=== PATIENT | female | born 1965 | race Caucasian/White ===

== ENCOUNTER 2020-11-17 13:14 | Inpatient (IN) | payer MEDICARE, MEDICAID ==
[~2020-11-17] VITALS: Ht 175.3 cm; Wt 82.1 kg
[~2020-11-17 13:14] MED LIST: CALC-386 PO; CYCL1POW25 PO; DULO30CA PO; MIRT-66 PO; NARA2.5T2 PO; PANT40T PO; [UNRECOGNIZED DRUG - CODE] PO
[2020-11-17 13:48] LABS: Basophils # (auto) 0 10 ^3/uL (0-0.2); Basophils % (auto) 0.4 % (0.0-2.0); Eosinophils # (auto) 0.1 10 ^3/uL (0-0.8); Hematocrit 37.3 % (36.0-46.0); Hemoglobin 12.4 g/dL (12.2-16.2); Lymphocytes # (auto) 0.8 10 ^3/uL (0.4-5.4); Lymphocytes % (auto) 10.8 % (10.0-50.0); Mean Corpuscular Hemoglobin 29.7 pg (28.0-32.0); Mean Corpuscular Hgb Conc. 33.3 g/dL (32.0-36.0); Mean Corpuscular Volume 89.3 fL (80.0-100.0); Monocytes # (auto) 0.7 10 ^3/uL (0-1.3); Monocytes % (auto) 8.7 % (0.0-12.0); Neutrophils # (auto) 6.1 10 ^3/uL (1.6-8.6); Neutrophils % (auto) 79.1 % (37.0-80.0); Nucleated Red Blood Cells % 0.1 %; Platelet Count (auto) 258 10^3/uL (140-450); Red Blood Cells 4.18 10^6/uL (4.0-5.20); Red Cell Distribution Width 15.6 % (11.8-14.3); White Blood Cell 7.7 10^3/uL (4.4-10.8)
[2020-11-17] MEDS ORDERED: THROAT LOZENGES(CEPASTAT) MT ONE (15:15)
[2020-11-17 17:20] LABS: Urine Bacteria FEW /hpf (None Seen); Urine Blood Negative /uL (Negative); Urine Mucus FEW (None Seen); Urine Specific Gravity 1.032 (1.001-1.035); Urine WBC 5 /hpf (0 - 5)
[2020-11-17] MEDS ORDERED: MORPHINE SULF INJ 2 MG/ML SYRINGE 1ML IV PRN ×2 (17:30)
[2020-11-17] MEDS ORDERED: NITROGLYCERIN 0.4 MG SL TAB SL PRN (17:30)
[2020-11-17] MEDS ORDERED: ACETAMINOPHEN 500 MG TAB PO PRN (17:30)
[2020-11-17] MEDS ORDERED: SODIUM CHLORIDE 0.9% 1,000 ML IV ONE (17:30)
[2020-11-17] MEDS ORDERED: ONDANSETRON HCL 4 MG/2 ML VIAL IV PRN (17:30)
[2020-11-17] MEDS: HYDROcodone-ACET 5/325MG TAB PO PRN (18:02)
[2020-11-17 20:34] LABS: Albumin 2.8 g/dL (3.4-5.0); Calcium 8.2 mg/dL (8.5-10.1); Potassium 3.4 mmol/L (3.5-5.1)
[2020-11-17 20:36] LABS: BUN/Creatinine Ratio 20.3; Bilirubin, Total 0.3 mg/dL (0.2-1.0); Total Protein 6.8 g/dL (6.4-8.2)
[2020-11-17] MEDS ORDERED: LORazepam 2MG/ML-1ML VIAL IV PRN (20:45)
[2020-11-17 21:22] LABS: Amphetamine Screen, Urine NEGATIVE (NEGATIVE); Barbiturate Scree,Urine NEGATIVE (NEGATIVE); Benzodiazephine Screen, Urine NEGATIVE (NEGATIVE); Cannabinoid Screen, Urine NEGATIVE (NEGATIVE); Cocaine Screen, Urine NEGATIVE (NEGATIVE); Opiate Scree,Urine POSITIVE (NEGATIVE); Phencyclidine Screen, Urine NEGATIVE (NEGATIVE)
[2020-11-17 23:30] VITALS: BP 136/68
[2020-11-17] MEDS: DULoxetine HCL 30 MG CAP PO SCH (23:36)
[2020-11-17] MEDS: MIRTAZAPINE 30 MG TAB PO SCH (23:39)
[2020-11-18 01:16] VITALS: BP 186/68
[2020-11-18] MEDS: HYDROcodone-ACET 5/325MG TAB PO PRN ×3 (02:15→21:59)
[2020-11-18 05:03] VITALS: BP 101/49
[2020-11-18] MEDS: DULoxetine HCL 30 MG CAP PO SCH ×3 (06:00→21:59)
[2020-11-18] MEDS: THROAT LOZENGES(CEPASTAT) MT PRN ×3 (06:03→22:14)
[2020-11-18] MEDS: BACLOFEN 10 MG TAB PO SCH (06:05)
[2020-11-18 09:02] VITALS: BP 99/48
[2020-11-18] MEDS ORDERED: FAMOTIDINE 20 MG TAB PO SCH (10:00)
[2020-11-18] MEDS: TERIFLUNOMIDE 14 MG PO SCH (10:00)
[2020-11-18] MEDS: ENOXAPARIN SOD 40 MG/0.4 ML SYRINGE SC SCH (11:45)
[2020-11-18] MEDS: PANTOPRAZOLE 40 MG TAB PO SCH (11:45)
[2020-11-18 12:01] VITALS: BP 103/61
[2020-11-18] MEDS ORDERED: POTASSIUM CHL 20 Meq TABLET PO ONE (12:15)
[2020-11-18 16:09] VITALS: BP 100/54
[2020-11-18 21:47] VITALS: BP 128/66
[2020-11-18] MEDS: MIRTAZAPINE 30 MG TAB PO SCH (21:59)
[2020-11-18 23:49] LABS: Urine Bacteria FEW /hpf (None Seen); Urine Blood 1+ /uL (Negative); Urine Specific Gravity 1.013 (1.001-1.035); Urine WBC 3 /hpf (0 - 5)
[2020-11-19 05:05] VITALS: BP 117/64
[2020-11-19] MEDS: DULoxetine HCL 30 MG CAP PO SCH ×2 (06:00→12:55)
[2020-11-19] MEDS: BACLOFEN 10 MG TAB PO SCH (06:45)
[2020-11-19] MEDS: HYDROcodone-ACET 5/325MG TAB PO PRN ×2 (06:45→17:11)
[2020-11-19] MEDS: THROAT LOZENGES(CEPASTAT) MT PRN (07:00)
[2020-11-19 07:51] LABS: Basophils # (auto) 0 10 ^3/uL (0-0.2); Basophils % (auto) 0.3 % (0.0-2.0); Eosinophils # (auto) 0.1 10 ^3/uL (0-0.8); Eosinophils % (auto) 1.1 % (0.0-7.0); Hematocrit 31.2 % (36.0-46.0); Hemoglobin 10.6 g/dL (12.2-16.2); Lymphocytes # (auto) 0.9 10 ^3/uL (0.4-5.4); Lymphocytes % (auto) 12.8 % (10.0-50.0); Mean Corpuscular Hemoglobin 29.9 pg (28.0-32.0); Mean Corpuscular Hgb Conc. 33.9 g/dL (32.0-36.0); Mean Corpuscular Volume 88.1 fL (80.0-100.0); Monocytes # (auto) 0.6 10 ^3/uL (0-1.3); Monocytes % (auto) 8.4 % (0.0-12.0); Neutrophils # (auto) 5.3 10 ^3/uL (1.6-8.6); Neutrophils % (auto) 77.4 % (37.0-80.0); Nucleated Red Blood Cells % 0.1 %; Platelet Count (auto) 241 10^3/uL (140-450); Red Blood Cells 3.55 10^6/uL (4.0-5.20); Red Cell Distribution Width 15.4 % (11.8-14.3); White Blood Cell 6.9 10^3/uL (4.4-10.8)
[2020-11-19 07:59] LABS: Calcium 8.5 mg/dL (8.5-10.1); Magnesium 2.2 mg/dL (1.6-2.6); Potassium 3.5 mmol/L (3.5-5.1)
[2020-11-19 08:02] LABS: BUN/Creatinine Ratio 15.4
[2020-11-19] MEDS ORDERED: ADENOSINE 69 MG in GIVE UN-DILUTED 0 ML IV STA (08:52)
[2020-11-19 08:56] VITALS: BP 98/57
[2020-11-19 10:47] VITALS: BP 109/62
[2020-11-19] MEDS ORDERED: POTASSIUM CHL 20 Meq TABLET PO ONE (12:00)
[2020-11-19 12:30] VITALS: BP 115/67
[2020-11-19] MEDS: ENOXAPARIN SOD 40 MG/0.4 ML SYRINGE SC SCH (12:54)
[2020-11-19] MEDS: TERIFLUNOMIDE 14 MG PO SCH (12:54)
[2020-11-19] MEDS: PANTOPRAZOLE 40 MG TAB PO SCH (12:54)
[2020-11-19 16:56] VITALS: BP 115/71
== END 2020-11-19 18:48 | disposition home health service (06) | DRG 312 ==
LOC: EDBD 13:14 → ER 13:14 → TELE 13:15 → TELE-CENTR 22:59
PROVIDERS: ADMIT Nurse Practitioner Acute Care; ATTEND Internal Medicine
DX: R55 Syncope and collapse (principal); E87.6 Hypokalemia; G35 Multiple sclerosis; J44.9 Chronic obstructive pulmonary disease, unspecified; I10 Essential (primary) hypertension; G89.29 Other chronic pain; Z20.822 Contact with and (suspected) exposure to COVID-19; F17.200 Nicotine dependence, unspecified, uncomplicated; I65.29 Occlusion and stenosis of unspecified carotid artery; Z79.891 Long term (current) use of opiate analgesic; Z80.9 Family history of malignant neoplasm, unspecified; I25.10 Atherosclerotic heart disease of native coronary artery without angina pectoris; Z82.3 Family history of stroke; Z82.49 Family history of ischemic heart disease and other diseases of the circulatory system; Z99.3 Dependence on wheelchair
CPT/HCPCS: 36415; 51702; 70450; 70551; 71045; 78452; 80048; 80053; 80307; 81001; 83735; 84484; 85025; 85379; 87070; 87426; 87880; 93005; 93017; 93306; 93886; 93970; 95819; 97110; 97163; 97530; G0378; J0153; J2405